=== PATIENT | female | born 1960 | race Caucasian/White ===

== ENCOUNTER → 2018-01-10 09:15 | Outpatient (CLI) | payer BC, SELFPAY ==
--- NOTE | 2018-01-10 09:18 | MR_ITS ---
MR head/brain wo con Ordering Physician: Janel Valdez Patient Age: 57 years: Female HISTORY: ITS.REASON: SUDDEN ONSET OF SEVERE HEADACHE HISTORY of hypertension, migraine headaches for 2 months. Nausea. Blurred vision. TECHNIQUE MR brain without contrast Multiplanar FLAIR, T1, T2 weighted images along with axial diffusion/ADC imaging performed on 1.5 T. Siemens, MRI... COMPARISON :CT of head without contrast 01/06/2018 FINDINGS As Suggestion the recent CT 01/06/2018 patient does have extensive deep white matter signal abnormalities at cerebral hemispheres bilaterally .. Rim of high signal surrounding the lateral ventricles then with numerous scattered high signal foci throughout the periventricular periventricular. This includes numerous small high signal foci surrounding not only the body of lateral ventricles but also seen in the deep white matter surrounding the atria and temporal horns of both lateral ventricles... Moving peripherally the we encounter even more pronounced confluence areas of white matter high signal abnormalities, throughout the periphery of the centrum semiovale, towards subcortical regions. These confluent areas of yield almost bandlike areas of increased white matter signal. Very prominent white matter signal abnormalities-particularly given patient age 57 This pattern is most typically encountered with underlying small vessel vascular disease. & Reflect significant vascular risk factors including significant hypertension, diabetes, etc. Vascular disease/vasculitis & some forms of drug abuse considered... History of severe migraines on the list but typically does not this extensive extensive of white matter abnormalities.. Also in this this age patient demyelinating disease would still be included in the differential. The there are no mass lesions. No extra-axial findings. The ventricles are normal in size. Normal anatomy but normal cranial cervical junction, normal sella and basal cisterns.. Corpus callosum. Normal no deep white matter lesions are seen here. It The skull is a generous in thickness throughout. Scalp unremarkable. Brain STEM satisfactory. Visualized paranasal sinuses are clear. No sinusitis. Orbits appear satisfactory. Temporal bone mastoid region with no significant findings. IACs symmetric. CP angles clear. Normal flow voids at dural venous sinuses. The posterior fossa appears satisfactory. Note Any remote old. CT or studies elsewhere may be helpful to see if there is recent change or/progression ------IMPRESSION 1. Prominent, extensive deep white matter high signal abnormalities cerebral, cerebral hemispheres bilateral. ... Including rim of generous periventricular- signal, along with very numerous scattered foci throughout periventricular regions, all as well as more confluent areas of white matter high signal towards subcortical regions. ... Prominent deep white matter signal abnormalities for any age, but particularly pronounced for 57-year-old Consider neurology follow-up particularly if focal symptoms .... Differential considerations are discussed above but the vascular disease/vascular risk factors most suspect findings most likely reflect Extensive Chronic microvascular white matter ischemic/gliotic changes 2. Otherwise Normal anatomy. No territorial infarct. No mass lesion. Posterior fossa unremarkable
[2018-01-10 10:49] LABS: Basophils % 0.5 % (0.1-2.0); Eosinophils # 0.2 K/mm3 (0.0-0.4); Eosinophils % 3.5 % (0.1-12.0); Hematocrit 48.2 % (37.0-47.0); Hemoglobin 15.7 g/dL (12.2-16.2); Lymphocytes # 2.1 K/mm3 (0.7-4.5); Mean Corpuscular HGB Conc 32.6 g/dL (31.8-35.4); Mean Corpuscular Hemoglobin 28.7 pg (27.0-31.2); Mean Corpuscular Volume 88.1 fl (81-99); Mean Platelet Volume 7.4 fl (7.4-10.4); Monocytes # 0.3 K/mm3 (0.1-1.0); Monocytes % 5.3 % (1.7-9.3); Neutrophils # 3.6 K/mm3 (1.8-7.8); Neutrophils % 57.7 % (37.0-80.0); Platelet Count 248 K/mm3 (142-424); Red Blood Count 5.47 M/mm3 (4.20-5.40); White Blood Count 6.3 K/mm3 (4.8-10.8)
[2018-01-10 11:45] LABS: Alanine Aminotransferase 18 U/L (12-78); Albumin/Globulin Ratio 1.2 (1.1-1.8); Alkaline Phosphatase 100 U/L (46-116); Anion Gap 11.6 mEq/L (5-15); Aspartate Amino Transferase 8 U/L (15-37); Bilirubin,Total 0.5 mg/dL (0.2-1.0); Blood Urea Nitrogen 14 mg/dL (7-18); Calcium 9.4 mg/dL (8.5-10.1); Carbon Dioxide 31 mmol/L (21.0-32.0); Chloride 105 mmol/L (98-107); Chol/HDL Ratio 4.2 (1-3.5); Cholesterol 221 mg/dL (140-200); Creatinine,Serum 0.76 mg/dL (0.55-1.02); Estimated Glomerular Filt Rate 78 ml/min (>60); Free T4 (Free Thyroxine) 1.06 ng/dl (0.76-1.46); GFR (African American) 94 ML/MIN (>60); Globulin 3.4 gm/dl (1.3-3.2); Glucose 114 mg/dL (74-106); HDL Cholesterol 53 mg/dL (29-89); LDL Cholesterol 151 mg/dL (0-130); Potassium 3.6 mmoL/L (3.5-5.1); Sodium 144 mmol/L (136-145); Thyroid Stimulating Hormone 2.49 uIU/ml (0.358-3.740); Total Protein,Serum 7.4 gm/dL (6.4-8.2); Triglycerides 83 mg/dL (30-200); VLDL Cholesterol 17 mg/dL (0-40)
== END ==
PROVIDERS: Visit Provider Nurse Practitioner Family
DX: R51 Headache (principal); R03.0 Elevated blood-pressure reading, without diagnosis of hypertension
CPT/HCPCS: 36415; 70551; 80053; 80061; 84439; 84443; 85025

== ENCOUNTER 2019-09-09 13:28 | Outpatient (RCR) | payer BC, SELFPAY | END 2019-10-15 13:08 | disposition home or self-care (01) | LOC: PT 13:28 | PROVIDERS: Visit Provider Internal Medicine | DX: I73.9 Peripheral vascular disease, unspecified (principal) | CPT/HCPCS: 93668 ==

== ENCOUNTER → 2019-10-09 08:54 | Day surgery (SDC) | payer BC, SELFPAY ==
[2019-10-09] VITALS (13 sets, daily range): BP systolic 106–130; BP diastolic 57–71; PULSE 63–778; RESP 16–20; TEMP 36.7–36.8; O2SAT 71–98; BMI 23.6
--- NOTE | 2019-10-09 | IR_ITS ---
APPROVED REPORT Patient Location: Outpatient Flagsetter: ZARA Nayak RT (R) PROCEDURES Left heart catheterization Left ventriculogram Selective coronary angiogram Drug-eluting stent deployment to the proximal LAD Intravascular ultrasound to the LAD INDICATION Coronary artery disease, Angina pectoris Informed consent was obtained prior to the procedure. COMPLICATIONS none Estimated Blood Loss: less than 10 mls TECHNIQUE One percent lidocaine used to anesthetize the right anterior aspect of the wrist. The right radial artery was accessed via the Seldinger technique. A 6 Spanish sheath was placed in the right radial artery. 2.5 mg of verapamil, 800 mcg of nitroglycerin, 1mg Lidocaine and 5000 U Heparin were given through the arterial sheath. The trap catheter was also used to perform left heart catheterization, left ventriculogram and selective coronary angiogram. At the end of the procedure additional heparin was administered giving a therapeutic ACT. And I Zenaida left guide catheter was used to intubate the left main artery and a BMW wire was placed distally. A 3 mm x 15 mm resolute saurabh stent was deployed at 14 ale reducing the stenosis. There was an angiographic discrepancy in the distal portion of the stent transitioning into the main artery. I was concerned that the stent was under deployed therefore an intravascular ultrasound probe was advanced to also make sure the entire lesion was stented. There was wide patency of the mid LAD as well as the first diagonal artery. The stent was open however it did not have excellent wall apposition therefore a 3 mm x 8 mm noncompliant balloon was deployed at 20 ale on 3 occasions in order to post dilate thereby increasing the stent size. Excellent angiographic results were obtained. At the end of the procedure the apparatus was removed the sheath was removed good hemostasis was achieved using TR banding patient was transferred to the postop holding in stable condition ANGIOGRAPHIC RESULTS The left main artery Normal The left anterior descending artery Has a highly eccentric 70% stenosis with the remaining vessel having a mild 40% mid vessel stenosis The circumflex artery Nondominant yet still large and normal The right coronary artery Large dominant with a proximal 20 to 30% smooth stenosis The PEREZ ventriculogram reveals Hyperdynamic at 75% The left ventricular end-diastolic pressure 10 mmHg IMPRESSION Severe proximal LAD disease as described above Successful stenting the proximal LAD severe disease reduced to 0% with one drug-eluting stent Hyperdynamic ventricle Normal left ventricular end-diastolic pressure PLAN 1. Brilinta and aspirin 2. Avoidance of tobacco products 3. Risk factor modification 4. Patient would benefit from beta-blockers possibly combined with diltiazem or verapamil 5. Treat underlying hypertension 6. Cardiac rehabilitation Electronically signed by : Ronnell Sal, 10/09/2019 11:39:52
--- NOTE | 2019-10-09 09:01 | CA_ITS ---
APPROVED REPORT EXAM: Comprehensive 2D, Doppler, and color-flow Echocardiogram [employer]: Daria Ruiz RT(R) Ht: 5 ft 4 in Wt: 138lbs BSA: 1.67 BP: 130/76 mmHg Indications: ABN EKG, CAD, PAD, CP, smoker, HTN 2D Dimensions LVOT 2.00 cm (M/F) 1.5-2.5 M-Mode Dimensions RVDd 1.95 cm (0.9-2.6) LVDd 3.83 cm (3.5-5.7) LVDs 2.79 cm (3.5-5.7) IVSd 1.18 cm (0.6-1.1) PWd 0.71 cm (0.6-1.1) EF (Teich) 53.60% FS 27.20% EDV (Teich) 63.10 mL ESV (Teich) 29.30 mL LV Diastology E/A Ratio 0.67 Mitral Valve MV A Velocity 95.00 (40-130 cm/s) Left Ventricle Left atrium is qualitatively mildly enlarged, left ventricle is normal size, mild qualitative concentric left ventricular hypertrophy, visually estimated ejection fraction 55% with no regional wall motion abnormality. Grade 1 diastolic dysfunction seen without tissue Doppler evidence of raise left atrial pressure. Right Ventricle Right atrium right ventricular normal size and contractility. Aortic Valve Aortic valve is minimally thickened and fibrosed, there is no aortic stenosis aortic insufficiency. Mitral Valve Mitral valve is grossly normal, there is mild mitral regurgitation. Tricuspid Valve Tricuspid valve is grossly normal, there is mild tricuspid regurgitation. Tricuspid regurgitation jet velocity is inadequate for calculation of the right ventricular systolic pressure. Pulmonic Valve Pulmonic valve is poorly visualized. Great Vessels Aortic root is normal size. Pericardium No significant pericardial effusion noted. Conclusion 1. Mildly enlarged left atrium, normal left ventricular size, mild concentric left ventricular hypertrophy, visually estimated ejection fraction 55% with no regional wall motion abnormality, grade 1 diastolic dysfunction seen without tissue Doppler evidence of raise left atrial pressure. 2. Mild mitral and tricuspid regurgitation. 3. No significant pericardial effusion noted, inferior vena cava is normal size with normal inspiratory collapse. Electronically signed by : Darrion Tuttle, 10/09/2019 11:34:07
[2019-10-09 09:53] LABS: Basophils # 0.1 K/mm3 (0-0.2); Basophils % 0.9 % (0.1-2.0); Eosinophils # 0.4 K/mm3 (0.0-0.4); Eosinophils % 4.6 % (0.1-12.0); Hematocrit 41.7 % (37.0-47.0); Hemoglobin 14.4 g/dL (12.2-16.2); Lymphocytes # 1.8 K/mm3 (0.7-4.5); Lymphocytes % 23.8 % (10-50); Mean Corpuscular HGB Conc 34.7 g/dL (31.8-35.4); Mean Corpuscular Hemoglobin 30.4 pg (27.0-31.2); Mean Corpuscular Volume 87.6 fl (81-99); Mean Platelet Volume 8.3 fl (7.4-10.4); Monocytes # 0.4 K/mm3 (0.1-1.0); Monocytes % 5.3 % (1.7-9.3); Neutrophils # 4.9 K/mm3 (1.8-7.8); Neutrophils % 65.4 % (37.0-80.0); Platelet Count 238 K/mm3 (142-424); Red Blood Count 4.76 M/mm3 (4.20-5.40); Red Cell Distribution Width 13.8 % (11.5-17.5); White Blood Count 7.5 K/mm3 (4.8-10.8)
[2019-10-09 10:00] LABS: Chloride 101 mmol/L (98-107)
[2019-10-09 10:01] LABS: Potassium 3.7 mmoL/L (3.5-5.1); Sodium 138 mmol/L (136-145)
[2019-10-09 10:03] LABS: Blood Urea Nitrogen 19 mg/dl (7-17); Creatinine Clearance Estimated 53 mL/min (50-200); Estimated Glomerular Filt Rate 50 ml/min (>60); GFR (African American) 61 ML/MIN (>60)
[2019-10-09 10:04] LABS: Anion Gap 12.7 mEq/L (5-15); Calcium 9.9 mg/dl (8.4-10.2); Carbon Dioxide 28 mmol/L (22.0-30.0); Glucose 115 mg/dl (74-100)
[2019-10-09 12:45] LABS: CATHL Activated Clotting Time 396 SEC (74-125)
--- NOTE | 2019-10-09 12:45 | [facility].PHACLD ---
Justine Lisandra has received discharge medication counseling on the following medications: PATIENT ALREADY PRESCRIBED: ASPIRIN 81 MG DAILY CLOPIDOGREL 75 MG DAILY LOSARTAN 100 MG DAILY METOPROLOL SUCCINATE 25 MG DAILY ATORVASTATIN 40 MG HS PATIENT INDICATED SHE WAS SUPPOSED TO STOP CLOPIDOGREL October AND START XARELTO. INSTRUCTED HER TO DISCUSS WITH .
== END ==
PROVIDERS: PCP Nurse Practitioner Family; Visit Provider Internal Medicine
DX: I25.118 Atherosclerotic heart disease of native coronary artery with other forms of angina pectoris (principal); I70.1 Atherosclerosis of renal artery; I10 Essential (primary) hypertension; R94.31 Abnormal electrocardiogram [ECG] [EKG]; Z82.49 Family history of ischemic heart disease and other diseases of the circulatory system; E03.9 Hypothyroidism, unspecified; Z79.899 Other long term (current) drug therapy; Z79.01 Long term (current) use of anticoagulants
CPT/HCPCS: 80048; 85025; 85347; 92928; 92978; 93306; 93458; 99152; 99153; C1725; C1769; C1876; C9600; J1644; Q9967

== ENCOUNTER 2019-10-19 13:11 | Outpatient (RCR) | payer BC, SELFPAY | END 2020-01-18 11:11 | disposition home or self-care (01) | LOC: PT 13:11 | PROVIDERS: Visit Provider Internal Medicine Cardiovascular Disease | DX: I25.10 Atherosclerotic heart disease of native coronary artery without angina pectoris (principal); I73.9 Peripheral vascular disease, unspecified | CPT/HCPCS: 93798 ==

== ENCOUNTER → 2020-02-12 10:10 | Outpatient (CLI) | payer BC, SELFPAY ==
[2020-02-13 18:30] LABS: Covid-19 Nasal PCR Sendout Lex Not Detected
== END ==
PROVIDERS: PCP Nurse Practitioner Family; Visit Provider Nurse Practitioner Family
DX: Z03.818 Encounter for observation for suspected exposure to other biological agents ruled out (principal)
CPT/HCPCS: U0004

== ENCOUNTER → 2020-04-04 08:01 | Outpatient (CLI) | payer BC, SELFPAY ==
[2020-04-04 08:45] LABS: Alanine Aminotransferase 19 U/L (12-78); Albumin Level 4.2 g/dl (3.5-5.0); Alkaline Phosphatase 93 U/L (38-126); Aspartate Amino Transferase 23 U/L (14-36); Bilirubin,Direct 0.1 mg/dl (0.0-0.4); Bilirubin,Indirect 0.3 mg/dL (0.0-0.9); Bilirubin,Total 0.4 mg/dl (0.2-1.3); Bilirubin,Unconjugated 0.3 mg/dL (0.0-1.1); Chol/HDL Ratio 3.1 (1-3.5); Cholesterol 146 mg/dl (140-200); HDL Cholesterol 47 mg/dl (40-60); Total Protein,Serum 7.1 g/dl (6.3-8.2); Triglycerides 109 mg/dl (30-150); VLDL Cholesterol 22 mg/dL (0-40)
[2020-04-04 08:57] LABS: Direct LDL Cholesterol 66.28 mg/dL (100-129)
== END ==
PROVIDERS: Visit Provider Nurse Practitioner Family
DX: R42 Dizziness and giddiness (principal); R94.31 Abnormal electrocardiogram [ECG] [EKG]; I10 Essential (primary) hypertension; I25.10 Atherosclerotic heart disease of native coronary artery without angina pectoris; I70.1 Atherosclerosis of renal artery; I73.9 Peripheral vascular disease, unspecified; F17.200 Nicotine dependence, unspecified, uncomplicated; Z95.5 Presence of coronary angioplasty implant and graft; Z79.899 Other long term (current) drug therapy
CPT/HCPCS: 36415; 80061; 80076